=== PATIENT | male | born 1995 | race Caucasian/White ===

== ENCOUNTER 2017-02-23 14:27 | Emergency (ER) | payer MEDICAID, OTHER ==
[2017-02-23 14:48] VITALS: RESP 18; TEMP 98.9
[2017-02-23] MEDS ORDERED: Neomycin/Polymyxin/Hydrocort Otic Susp (10 ml) AD STA (15:14)
--- NOTE | 2017-02-23 15:21 | ED PDOC ---
Arrival/HPI - General Chief Complaint: ENT Problem Time Seen by Provider: 02/23/17 15:00 Historian: Patient - History of Present Illness Narrative History of Present Illness (Text): 02/23/17 15:11 21-year-old male presents today with a One-week history of right-sided ear pain. Taking Motrin for pain without improvement. He describes the pain as intermittent and throbbing and sharp. Patient states the pain is radiating into the jaw. He denies blurred vision. Denies fevers or chills. Patient states he has been cleaning his ears with Q-tips regularly. Patient denies decreased hearing. Denies dental pain. No chest pain or shortness of breath. Time/Duration: 1 week Past Medical History - Provider Review Nursing Documentation Reviewed: Yes - Travel History Have you recently traveled outside [place] w/in the past 3 mons?: No - Infectious Disease Hx of Infectious Diseases: None - Psychiatric Hx Substance Use: Yes - Surgical History Other/Comment: rectal fistula - Anesthesia Hx Anesthesia: Yes Hx Anesthesia Reactions: No Family/Social History - Physician Review Nursing Documentation Reviewed: Yes Family/Social History: Unknown Family HX Smoking Status: Current Some Days Smoker Hx Alcohol Use: Yes Frequency of alcohol use: Socially Hx Substance Use: Yes Substance used: marijuana Allergies/Home Meds Allergies/Adverse Reactions: Allergies No Known Allergies Allergy (Verified 02/23/17 14:48) Review of Systems - Review of Systems Constitutional: absent: Fatigue, Fevers ENT: Sinus Congestion, Other (right sided ear pain). absent: Hearing Changes Respiratory: absent: SOB, Cough Cardiovascular: absent: Chest Pain, Palpitations Gastrointestinal: absent: Abdominal Pain, Nausea, Vomiting Musculoskeletal: Arthralgias (jaw pain). absent: Back Pain, Neck Pain Skin: absent: Rash, Pruritis Neurological: absent: Headache, Dizziness Psychiatric: absent: Anxiety, Depression Physical Exam Vital Signs Reviewed: Yes Vital Signs Temp Pulse Resp BP Pulse Ox 02/23/17 14:45 98.9 F 98 H 18 133/77 96 Temperature: Afebrile Blood Pressure: Normal Pulse: Regular Respiratory Rate: Normal Appearance: Positive for: Well-Appearing, Non-Toxic, Comfortable Pain Distress: None Mental Status: Positive for: Alert and Oriented X 3 - Systems Exam Head: Present: Atraumatic Ears: Present: Erythema (right TM erythema, + right canal edema and erythema; no discharge. ), Other (no mastoid tenderness or erythema or edema. ). No: Normal, NORMAL TM, Normal Canal, TM Perf Mouth: Present: Moist Mucous Membranes, Normal Tounge, Normal Teeth. No: Drooling, Trismus Pharnyx: Present: Normal. No: ERYTHEMA, EXUDATE, TONSILS ENLARGED Nose (External): Present: Atraumatic Nose (Internal): Present: Normal Inspection Neck: Present: Normal Range of Motion, Lymphadenopathy (+ periauricular lymphadenopathy) Respiratory/Chest: Present: Clear to Auscultation Cardiovascular: Present: Regular Rate and Rhythm Neurological: Present: GCS=15 Skin: Present: Warm, Dry, Normal Color. No: Rashes Psychiatric: Present: Alert, Oriented x 3 Medical Decision Making ED Course and Treatment: 02/23/17 15:24 Patient is nontoxic well appearing in no distress. Vital signs are stable pt refused toradol. motrin given PO cortisporin otic susp tramadol amoxicillin I advised follow up with primary care physician and ENT within the next 2 days, advised to increase fluids take medications as prescribed and return if symptoms worsen persist or if new symptoms develop Patient verbalizes understanding of discharge instructions and need for immediate followup. IMPRESSION; otitis media, otitis externa Motrin every 6 hours as needed for pain/fever reduction Increase fluids amoxicillin 3 times daily 10 days Cortisporin otic: 4 drops 4 times daily 7 days Follow-up with the ENT specialist within the next 2 days Follow up primary care physician within the next 2 days Return if symptoms worsen persist or if the symptoms develop - Medication Orders Current Medication Orders: Discontinued Medications Amoxicillin (Amoxil 500 Mg Cap) 500 mg PO STAT STA PRN Reason: Protocol Stop: 02/23/17 15:10 Ketorolac Tromethamine (Toradol) 60 mg IM STAT STA Stop: 02/23/17 15:10 Neomycin/Polymyxin/Hydrocortisone (Cortisporin Otic Susp) 0 ml AD QID STA Stop: 02/23/17 15:15 Tramadol HCl (Ultram) 50 mg PO STAT STA Stop: 02/23/17 15:10 Disposition/Present on Arrival - Present on Arrival Any Indicators Present on Arrival: No History of DVT/PE: No History of Uncontrolled Diabetes: No Urinary Catheter: No History of Decub. Ulcer: No History Surgical Site Infection Following: None - Disposition Have Diagnosis and Disposition been Completed?: Yes Diagnosis: Otitis media, Otitis externa Disposition: HOME/ ROUTINE Disposition Time: 15:28 Patient Plan: Discharge Patient Problems: Current Active Problems Problem Status Onset Otitis externa Acute Otitis media Acute Condition: GOOD Discharge Instructions (ExitCare): Otitis Externa (ED), Otitis Media (ED) Additional Instructions: Motrin every 6 hours as needed for pain/fever reduction Increase fluids amoxicillin 3 times daily 10 days Cortisporin otic: 4 drops 4 times daily 7 days Follow-up with the ENT specialist within the next 2 days Follow up primary care physician within the next 2 days Return if symptoms worsen persist or if the symptoms develop Prescriptions: Amoxicillin 500 mg PO TID #30 tab Ibuprofen [Motrin] 600 mg PO Q6H PRN #20 tab PRN Reason: pain/fever reduction Neomycin/Polymyxin/Hydrocortis [Cortisporin Otic Susp] 4 drop AD QID #1 bottle traMADol [Ultram] 50 mg PO Q6H PRN #6 tab PRN Reason: moderate to severe pain Referrals: Jacinto Chatman DO [Doctor [facility]] - Follow up with primary Rufino Wen DO [Staff Provider] - Follow up with primary [facility] [place] [Outside] - Follow up with primary Forms: [employer] ([place]), WORK NOTE
[2017-02-23 15:59] VITALS: BP 131/74; PULSE 89; O2SAT 97
== END 2017-02-23 16:00 | disposition home or self-care (01) ==
LOC: ED 14:27
DX: H66.91 Otitis media, unspecified, right ear (principal); H60.91 Unspecified otitis externa, right ear